=== PATIENT | female | born 1985 | race Hispanic/Latino ===

== ENCOUNTER 2018-09-22 16:36 | Emergency (ER) | payer BC ==
--- OUTSIDE RECORDS SUMMARY | 2018-09-22 16:38 | XMS REPORT ---
:1985 [facility] Address [address] [place] [address] Dr. Leigh [address] [place] [id number] Care Team Providers Name Role Phone Unavailable Unavailable Unavailable Problems This patient has no known problems. Allergies, Adverse Reactions, Alerts This patient has no known allergies or adverse reactions. Medications This patient has no known medications. Results Test Description Test Time Test Comments Text Results Atomic Results Result Comments [place], ERCP 2017-02-03 15:52:00 Reason for FINAL REPORT PATIENT ID: exam:->abnormal LFTs [id number] TECHNIQUE: Fluoroscopic images from endoscopic retrograde cholangiopancreatography were submitted for interpretation. INDICATION: 31-year-old woman with abnormal LFTs. COMPARISON: None. FINDINGS:Images show the endoscope in the expected region of the proximal duodenum with interrogation of the biliary system. Fluoroscopy time: 2.3 minutesNumber of images: 3 IMPRESSION:Fluoroscopic images from endoscopic retrograde cholangiopancreatography as detailed above, not obtained by the undersigned. Please refer to endoscopy note for more details of the procedure and findings. Signed: Camilla Cruz MDReport Verified Date/Time: 02/03/2017 15:52:56 Reading Location: [address] Radiology Reading Room
--- OUTSIDE RECORDS SUMMARY | 2018-09-22 16:38 | XMS REPORT | Clinical Summary ---
:[address] [facility] Address [address] [place] [address] Care Team Providers Name Role Phone Sylwia Constantino MD Primary Care Provider Allergies No Known Allergies Medications Medication Sig Dispensed Refills Start Date End Date Status pantoprazole (PROTONIX) Take 40 mg by 0 Active 40 MG tablet mouth daily. ibuprofen Take 800 mg by 0 Active (ADVIL,MOTRIN) 800 MG mouth every 6 tablet (six) hours as needed for Pain. aluminum-magnesium Take 30 mLs by 0 Active hydroxide-simethicone mouth as needed . (MAALOX PLUS) suspension 200-200-20 mg/5 mL ranitidine (ZANTAC) 75 Take 75 mg by 0 Active MG tablet mouth as needed for Heartburn. Active Problems Not on file Social History Tobacco Use Types Packs/Day Years Used Date Former Smoker Smokeless Tobacco: Never Used Alcohol Use Drinks/Week oz/Week Comments Yes occasionally Sex Assigned at Date Recorded Not on file Job Start Date Occupation Industry Not on file Not on file Not on file Travel History Travel Start Travel End No recent travel history available. Last Filed Vital Signs Not on file Plan of Treatment Not on file Results Not on fileafter 09/21/2017 Insurance Payer Benefit Plan / Subscriber ID Type Phone Address Group BLUE CROSS/BLUE BCBS HMO xxxxxxxxxxxx HMO/POS [phone] [address] [place] [address] [place] y (Home) [place] [address]
[2018-09-22] MEDS ORDERED: ONDANSETRON 4 MG/2 ML VIAL ONE (17:13)
[2018-09-22] MEDS ORDERED: NA CHLORIDE 0.9% 1,000 ML ONE ×3 (17:13→21:48)
[2018-09-22 17:20] LABS: Absolute Lymphocytes (CBC) 1.1 K/uL (0.7-4.9); Absolute Monocytes 0.8 K/uL (0.1-1.3); Absolute Neutrophil 15.1 K/uL (1.8-8.0); Basophils % 0.2 % (0-1.3); Eosinophils % 0.3 % (0-4.4); Hematocrit 40.1 % (36.0-45.0); Lymphocytes % 6.3 % (15.3-44.8); MPV 6.6 fL (7.6-11.3); Monocytes % 4.5 % (3.3-12.3); RBC Red Blood Cell Count 4.53 M/uL (3.86-4.86)
[2018-09-22 17:34] LABS: Urine Bacteria <20 /HPF (<20); Urine Culture Reflex Order NOT NEEDED; Urine RBC <5 /HPF (NONE SEEN)
[2018-09-22 17:34] LABS: Urine Blood TRACE (NEG); Urine Glucose NEGATIVE (NEG); Urine Protein NEGATIVE (NEG); Urine pH 5.5 (5.0-7.0)
[2018-09-22 17:37] LABS: ALT/SGPT 20 U/L (12-78); AST/SGOT 16 U/L (15-37); Albumin 3.6 g/dL (3.4-5.0); Alkaline Phosphatase 97 U/L (45-117); BUN Blood Urea Nitrogen 13 mg/dL (7-18); Bicarbonate 24 mmol/L (21-32); Bilirubin Direct < 0.1 mg/dL (0-0.2); Bilirubin Total 0.4 mg/dL (0.2-1.0); Glucose Level 129 mg/dL (74-106); Lipase 113 U/L (73-393); Potassium 3.8 mmol/L (3.5-5.1); Protein, Total 8.5 g/dL (6.4-8.2); Sodium Level 135 mmol/L (136-145)
[2018-09-22 17:49] LABS: Blood Morphology Comment NOT SEEN (NOT SEEN); Platelet Estimate ADEQ; Urine White Blood Cell Casts OK
--- NOTE | 2018-09-22 18:16 | RAD REPORT ---
EXAM DESCRIPTION: CT - Abdomen Pelvis W Contrast - 09/22/2018 6:01 pm CLINICAL HISTORY: Abdominal pain . COMPARISON: 2016 TECHNIQUE: Computed axial tomography of the abdomen pelvis was obtained. 100 cc Isovue-300 was admin istered intravenously. Oral contrast was not requested which limits evaluation of bowel. All CT scans are performed using dose optimization technique as appropriate and may include automated exposure control or mA/KV adjustment according to patient size. FINDINGS: The liver, spleen, pancreas, adrenal and kidneys appear unremarkable. There is no evidence of diverticulitis. A normal appendix Cholecystectomy . Tiny umbilical hernia Spondylolysis L5 IMPRESSION: No acute abnormality is displayed.
[2018-09-22] MEDS ORDERED: IBUPROFEN 400 MG TAB ONE (19:03)
[2018-09-22] MEDS ORDERED: IBUPROFEN 200 MG TAB PO ONE (19:03)
--- NOTE | 2018-09-22 19:08 | RAD REPORT ---
EXAM DESCRIPTION: Dulce Thayer (2 Views)09/22/2018 6:38 pm CLINICAL HISTORY: Cough COMPARISON: None FINDINGS: The lungs appear clear of acute infiltrate. The heart is normal size IMPRESSION: No acute abnormalities displayed
[2018-09-22] MEDS ORDERED: ACETAMINOPHEN 325 MG TABLET ONE (19:18)
--- NOTE | 2018-09-22 21:06 | EDPHYS ---
Physician Documentation [facility] Name: Inga Estrada Age: 33 yrs Sex: Female : 1985 Arrival Date: 09/22/2018 Time: 16:38 Bed 30 Private MD: Andi Weinstein ED Physician Darrius Joaquin HPI: 09/22 16:56 This 33 yrs old Female presents to ER via Ambulatory with complaints of jmm Abdominal Pain, Groin Pain, Fever. 16:56 The patient presents with abdominal pain. Onset: The symptoms/episode began/occurred jmm today. The symptoms do not radiate. Associated signs and symptoms: Pertinent positives: dysuria, fever, nausea, Pertinent negatives: diarrhea. This is a 33 year old female with no chronic medical conditions that presents to the ED with complaints of left lower abdominal pain, increased urinary frequency beginning earlier today. patient also complains of cough beginning 5 days ago. States her children have similar symptoms. . 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 - Social history:: Smoking status: Patient/guardian denies using tobacco. - Ebola Screening: : Patient negative for fever greater than or equal to 101.5 degrees Fahrenheit, and additional compatible Ebola Virus Disease symptoms Patient denies exposure to infectious person Patient denies travel to an Ebola-affected area in the 21 days before illness onset No symptoms or risks identified at this time. ROS: 16:56 Cardiovascular: Negative for chest pain, palpitations, and edema. jmm 16:56 Constitutional: Positive for body aches, chills, fever. 16:56 ENT: Positive for sore throat. 16:56 Respiratory: Positive for cough. 16:56 Abdomen/GI: Positive for abdominal pain. 16:56 : Positive for urinary symptoms. 16:56 All other systems are negative. Exam: 16:56 Constitutional: This is a well developed, well nourished patient who is awake, alert, jmm and in no acute distress. Head/Face: atraumatic. Eyes: EOMI, no conjunctival erythema appreciated 16:56 Chest/axilla: Normal chest wall appearance and motion. 16:56 ENT: Posterior pharynx: erythema, that is mild. 16:56 Cardiovascular: Rate: tachycardic, Rhythm: regular. 16:56 Respiratory: the patient does not display signs of respiratory distress, Respirations: normal, Breath sounds: are clear throughout. 16:56 Abdomen/GI: Inspection: obese Palpation: soft, mild abdominal tenderness, in the suprapubic area and left lower quadrant. 16:56 Back: CVA tenderness, is absent, is noted bilaterally. 16:56 Musculoskeletal/extremity: ROM: intact in all extremities. 16:56 Skin: Appearance: Color: normal in color, cellulitis, is not appreciated. 16:56 Neuro: Orientation: is normal, Mentation: is normal, Memory: is normal. 16:56 Psych: Behavior/mood is pleasant, cooperative. Vital Signs: 16:54 BP 128 / 67; Pulse 132; Resp 19; Pulse Ox 100% ; rv 16:54 BP 128 / 67; Pulse 132; Resp 17; Temp 98.7; Pulse Ox 97% on R/A; Weight 154.67 kg; sg Height 5 ft. 5 in. (165.10 cm); Pain 6/10; 17:43 BP 115 / 73; Pulse 122; Resp 17 S; Temp 99.9(O); Pulse Ox 100% on R/A; ca1 18:25 BP 110 / 52; Pulse 119; Resp 17; Pulse Ox 100% on R/A; ca1 19:00 BP 137 / 53; Pulse 125; Resp 19 S; Temp 103.1(O); Pulse Ox 99% on R/A; ca1 19:56 BP 124 / 51; Pulse 106; Resp 19; Pulse Ox 97% ; rv 20:06 BP 107 / 58; Pulse 130; Resp 18 S; Temp 98.8(O); Pulse Ox 98% on R/A; ca1 20:42 BP 118 / 49; Pulse 116; Resp 19 S; Temp 98.9(O); Pulse Ox 97% on R/A; ca1 21:07 Pulse 103; ca1 21:21 BP 118 / 49; Pulse 105; Resp 18 S; Temp 98.5; Pulse Ox 97% on R/A; ca1 22:09 BP 109 / 57; Pulse 104; Resp 19 S; Temp 99.1(O); Pulse Ox 100% on R/A; ca1 16:54 Body Mass Index 56.74 (154.67 kg, 165.10 cm) sg 21:07 as per VALERI Quezada. ca1 MDM: 16:56 Patient medically screened. [facility] 21:02 Data reviewed: vital signs, nurses notes. Counseling: I had a detailed discussion with isamar the patient and/or guardian regarding: the historical points, exam findings, and any diagnostic results supporting the discharge/admit diagnosis, lab results, radiology results, the need for outpatient follow up, to return to the emergency department if symptoms worsen or persist or if there are any questions or concerns that arise at home. ED course: Patient is alert and non toxic in appearance in the ED. VS appear stable on discharge. Patient will be prescribed abx due to urinary complaints. Patient states her children have similar symptoms. Fever appears to be due to a viral syndrome. Patient is otherwise given strict return precautions. patient understood and agrees with the plan of care.. 09/22 16:57 Order name: Basic Metabolic Panel; Complete Time: 17:40 [facility] 09/22 16:57 Order name: CBC with Diff; Complete Time: 17:53 [facility] 09/22 16:57 Order name: Creatinine for Radiology; Complete Time: 17:41 [facility] 09/22 16:57 Order name: Hepatic Function; Complete Time: 17:40 [facility] 09/22 16:57 Order name: Lipase; Complete Time: 17:40 [facility] 09/22 17:02 Order name: Flu [facility] 09/22 17:03 Order name: Influenza Screen (A ; Complete Time: 17:40 [facility] 09/22 17:03 Order name: Urine Dipstick--Ancillary (enter results); Complete Time: 17:40 ca 09/22 17:03 Order name: Urine --Ancillary (enter results); Complete Time: 17:40 ca 09/22 17:05 Order name: Urine Microscopic Only ca1 09/22 17:05 Order name: Urine Microscopic Only; Complete Time: 17:40 [facility] 09/22 17:25 Order name: CBC Smear Scan; Complete Time: 17:53 [facility] 09/22 18:35 Order name: Strep; Complete Time: 19:23 [facility] 09/22 18:35 Order name: Procalcitonin; Complete Time: 19:52 [facility] 09/22 16:57 Order name: IV Saline Lock; Complete Time: 17:12 [facility] 09/22 16:57 Order name: Labs collected and sent; Complete Time: 17:12 [facility] 09/22 16:57 Order name: Urine Dipstick-Ancillary (obtain specimen); Complete Time: 16:59 [facility] 09/22 16:57 Order name: CT Abd/Pelvis - W/Contrast; Complete Time: 18:21 [facility] 09/22 18:21 Order name: Chest Pa And Lat (2 Views) XRAY; Complete Time: 19:09 [facility] 09/22 19:09 Order name: [place] Screen Profile; Complete Time: 19:52 [facility] 09/22 19:10 Order name: Throat Culture EDMS Administered Medications: 17:12 Drug: NS 0.9% 1000 ml Route: IV; Rate: 1 bolus; Site: right antecubital; rv 18:00 Follow up: IV Status: Completed infusion ca1 18:45 Drug: Motrin 600 mg Route: PO; ca1 20:08 Follow up: Response: No adverse reaction; Temperature is decreased ca1 18:45 Drug: NS 0.9% 1000 ml Route: IV; Rate: 1 bolus; Site: right antecubital; ca1 19:30 Follow up: IV Status: Completed infusion ca1 20:08 Follow up: IV Status: Completed infusion ca1 19:03 Drug: Tylenol 650 mg Route: PO; ca1 20:08 Follow up: Response: No adverse reaction; Temperature is decreased ca1 20:42 Drug: NS 0.9% 1000 ml Route: IV; Rate: 1 bolus; Site: right antecubital; ca1 22:07 Follow up: IV Status: Completed infusion ca1 21:25 Not Given (Patient Refused): Zofran 4 mg IVP once; over 2 minutes ca1 Disposition: 09/22/18 21:05 Discharged to Home. Impression: Other viral infections of unspecified site, Unspecified abdominal pain, Dysuria. - Condition is Stable. - Discharge Instructions: Abdominal Pain, Adult, Dysuria, Viral Respiratory Infection. - Prescriptions for Cephalexin 500 mg Oral Capsule - take 1 capsule by ORAL route every 12 hours for 10 days; 20 capsule. - Medication Reconciliation Form, Thank You Letter, Antibiotic Education, Prescription Opioid Use form. - Follow up: Andi Weinstein MD; When: 2 - 3 days; Reason: Recheck today's complaints, Continuance of care, Re-evaluation by your physician. Addendum: 09/25/2018 21:18 Co-signature as Attending Physician, Darrius Joaquin MD Available for consultation at p s1 all times. . Signatures: Dispatcher [employer] EDLanden Saleem, RN RN sg Renny Bui PA PA jmm Singer, Phillip, MD MD ps1 Alex Cooper RN RN rv AcMary moran RN RN ca1 Corrections: (The following items were deleted from the chart) 09/22 22:11 21:05 09/22/2018 21:05 Discharged to Home. Impression: Other viral infections of ca1 unspecified site; Unspecified abdominal pain; Dysuria. Condition is Stable. Forms are Medication Reconciliation Form, Thank You Letter, Antibiotic Education, Prescription Opioid Use. Follow up: Andi Weinstein; When: 2 - 3 days; Reason: Recheck today's complaints, Continuance of care, Re-evaluation by your physician. isamar
--- NOTE | 2018-09-22 21:06 | ER ---
Nurse's Notes [facility] Name: Inga Estrada Age: 33 yrs Sex: Female : 1985 Arrival Date: 09/22/2018 Time: 16:38 Bed 30 Private MD: Andi Weinstein Diagnosis: Other viral infections of unspecified site;Unspecified abdominal pain;Dysuria Presentation: 09/22 16:53 Presenting complaint: Patient states: I have had left side lower back and left sided sg flank pain that worsened this morning around 0900 with nausea fever and chills, reports the pain wraps around the left side of her body. Transition of care: patient was not received from another setting of care. Onset of symptoms was September 22, 2018. Risk Assessment: Do you want to hurt yourself or someone else? Patient reports no desire to harm self or others. Initial Sepsis Screen: Does the patient meet any 2 criteria? HR > 90 bpm. Does the patient have a suspected source of infection? Yes: Dysuria/Frequency/Urgency/UTI. Care prior to arrival: None. 16:53 Method Of Arrival: Ambulatory 16:53 Acuity: IGOR 3 sg MD PSYCHIATRY: 16:54 LMP N/A - Recent sg Historical: - Allergies: 16:55 No Known Allergies; sg - PSHx: 16:55 Cholecystectomy; sg - Immunization history:: Adult Immunizations up to date. - Social history:: Smoking status: Patient/guardian denies using tobacco. - Ebola Screening: : Patient negative for fever greater than or equal to 101.5 degrees Fahrenheit, and additional compatible Ebola Virus Disease symptoms Patient denies exposure to infectious person Patient denies travel to an Ebola-affected area in the 21 days before illness onset No symptoms or risks identified at this time. Screenin:54 Abuse screen: Denies threats or abuse. Denies injuries from another. Nutritional ca1 screening: No deficits noted. Tuberculosis screening: No symptoms or risk factors identified. Fall Risk None identified. Assessment: 16:54 General: Appears in no apparent distress. comfortable, Behavior is calm, cooperative, ca1 appropriate for age. Pain: Complains of pain in left lower quadrant Pain radiates to suprapubic area and posterior aspect of left lateral abdomen Pain currently is 6 out of 10 on a pain scale. at worst was 8 out of 10 on a pain scale. Quality of pain is described as pressure, Pain began at 0900 today. Neuro: Level of Consciousness is awake, alert, obeys commands. Cardiovascular: Heart tones S1 S2 present Capillary refill < 3 seconds Patient's skin is warm and dry. Respiratory: Airway is patent Respiratory effort is even, unlabored, Respiratory pattern is regular, symmetrical. GI: Abdomen is round non-distended, Bowel sounds present X 4 quads. Abd is soft X 4 quads Abdomen is tender to palpation in right lower quadrant and left lower quadrant Reports nausea. : No deficits noted. No signs and/or symptoms were reported regarding the genitourinary system. EENT: No deficits noted. No signs and/or symptoms were reported regarding the EENT system. Derm: Skin is intact, is healthy with good turgor, Skin is pink, warm \T\ dry. Derm: Musculoskeletal: Circulation, motion, and sensation intact. Capillary refill < 3 seconds. 17:13 Reassessment: Pt refused Zofran as of this time. States, she is nauseated as of this ca1 time. 18:25 Reassessment: Patient appears in no apparent distress at this time. Patient and/or ca1 family updated on plan of care and expected duration. Pain level reassessed. Patient is alert, oriented x 3, equal unlabored respirations, skin warm/dry/pink. 20:07 Reassessment: Patient appears in no apparent distress at this time. Patient is alert, ca1 oriented x 3, equal unlabored respirations, skin warm/dry/pink. 20:42 Reassessment: Patient appears in no apparent distress at this time. Patient and/or ca1 family updated on plan of care and expected duration. Pain level reassessed. Patient is alert, oriented x 3, equal unlabored respirations, skin warm/dry/pink. 21:22 Reassessment: Patient appears in no apparent distress at this time. Patient is alert, ca1 oriented x 3, equal unlabored respirations, skin warm/dry/pink. Patient states feeling better. 21:24 Reassessment: Pt requested to finish IVF before discharge. ca1 22:09 Reassessment: Patient appears in no apparent distress at this time. Patient is alert, ca1 oriented x 3, equal unlabored respirations, skin warm/dry/pink. Instructions given, especially with intervals in taking Motrin and Tylenol. Verbalized understanding on instructions. Vital Signs: 16:54 BP 128 / 67; Pulse 132; Resp 19; Pulse Ox 100% ; rv 16:54 BP 128 / 67; Pulse 132; Resp 17; Temp 98.7; Pulse Ox 97% on R/A; Weight 154.67 kg; sg Height 5 ft. 5 in. (165.10 cm); Pain 6/10; 17:43 BP 115 / 73; Pulse 122; Resp 17 S; Temp 99.9(O); Pulse Ox 100% on R/A; ca1 18:25 BP 110 / 52; Pulse 119; Resp 17; Pulse Ox 100% on R/A; ca1 19:00 BP 137 / 53; Pulse 125; Resp 19 S; Temp 103.1(O); Pulse Ox 99% on R/A; ca1 19:56 BP 124 / 51; Pulse 106; Resp 19; Pulse Ox 97% ; rv 20:06 BP 107 / 58; Pulse 130; Resp 18 S; Temp 98.8(O); Pulse Ox 98% on R/A; ca1 20:42 BP 118 / 49; Pulse 116; Resp 19 S; Temp 98.9(O); Pulse Ox 97% on R/A; ca1 21:07 Pulse 103; ca1 21:21 BP 118 / 49; Pulse 105; Resp 18 S; Temp 98.5; Pulse Ox 97% on R/A; ca1 22:09 BP 109 / 57; Pulse 104; Resp 19 S; Temp 99.1(O); Pulse Ox 100% on R/A; ca1 16:54 Body Mass Index 56.74 (154.67 kg, 165.10 cm) sg 21:07 as per VALERI Quezada. ca1 ED Course: 16:38 Patient arrived in ED. as 16:39 Andi Weinstein MD is Private Physician. as 16:44 Mary Villafana, GER is Primary Nurse. ca1 16:45 Renny Bui PA is [facility]. [facility] 16:45 Darrius Joaquin MD is Attending Physician. [facility] 16:54 Triage completed. sg 16:55 Arm band placed on. sg 16:57 Patient has correct armband on for positive identification. Placed in gown. Bed in low ca1 position. Call light in reach. Side rails up X 1. Pulse ox on. NIBP on. Warm blanket given. 17:05 Inserted saline lock: 22 gauge in right antecubital area, using aseptic technique. rv Blood collected. 17:[address] mw3 18:01 CT completed. Patient tolerated procedure well. Patient moved back from CT. mw3 18:01 CT Abd/Pelvis - W/Contrast In Process Unspecified. EDMS 18:37 Chest Pa And Lat (2 Views) XRAY In Process Unspecified. EDMS 21:04 Andi Weinstein MD is Referral Physician. m 22:11 No provider procedures requiring assistance completed. IV discontinued, intact, ca1 bleeding controlled, No redness/swelling at site. Pressure dressing applied. Administered Medications: 17:12 Drug: NS 0.9% 1000 ml Route: IV; Rate: 1 bolus; Site: right antecubital; rv 18:00 Follow up: IV Status: Completed infusion ca1 18:45 Drug: Motrin 600 mg Route: PO; ca1 20:08 Follow up: Response: No adverse reaction; Temperature is decreased ca1 18:45 Drug: NS 0.9% 1000 ml Route: IV; Rate: 1 bolus; Site: right antecubital; ca1 19:30 Follow up: IV Status: Completed infusion ca1 20:08 Follow up: IV Status: Completed infusion ca1 19:03 Drug: Tylenol 650 mg Route: PO; ca1 20:08 Follow up: Response: No adverse reaction; Temperature is decreased ca1 20:42 Drug: NS 0.9% 1000 ml Route: IV; Rate: 1 bolus; Site: right antecubital; ca1 22:07 Follow up: IV Status: Completed infusion ca1 21:25 Not Given (Patient Refused): Zofran 4 mg IVP once; over 2 minutes ca1 Outcome: 21:05 Discharge ordered by . [facility] 22:11 Discharged to home ambulatory, with significant other. ca1 22:11 Condition: stable 22:11 Discharge instructions given to patient, Instructed on discharge instructions, follow up and referral plans. medication usage, Demonstrated understanding of instructions, follow-up care, medications, Prescriptions given X 1. 22:11 Patient left the ED. ca1 Signatures: Dispatcher [employer] EDMS Landen Tapia, GER RN Renny Bui PA PA jmm Martinez, Amelia as Willis, Michelle mw3 Alex Cooper RN RN rv Mary Villafana RN RN ca1 Corrections: (The following items were deleted from the chart) 16:58 16:54 Patient has correct armband on for positive identification. Placed in gown. Bed ca1 in low position. Call light in reach. Side rails up X 1. ca1 : 16:54 Pulse ox on. NIBP on. ca1 ca1 16:58 16:54 Warm blanket given. ca1 ca1 20:43 19:00 BP 137 / 53; Pulse 125bpm; Resp 19bpm; Spontaneous; Pulse Ox 99% RA; Temp 103.1F; ca1 ca1 20:43 20:06 BP 107 / 58; Pulse 130bpm; Resp 18bpm; Spontaneous; Pulse Ox 98% RA; Temp 98.8F; ca1 ca1 20:56 20:42 Pulse 116bpm; Resp 19bpm; Spontaneous; Pulse Ox 97% RA; Temp 98.9F Oral; ca1 ca1
[2018-09-22 23:04] VITALS: BP 109/57; TEMP 99.1; O2SAT 100
== END 2018-09-22 22:11 | disposition home or self-care (01) ==
LOC: ER 16:36
DX: B34.8 Other viral infections of unspecified site (principal); R10.9 Unspecified abdominal pain; R30.0 Dysuria
CPT/HCPCS: 36415; 71046; 74177; 80048; 80076; 81003; 81015; 81025; 83690; 84145; 85025; 86308; 87070; 87081; 87804; 96360; 96361; 99284; J2405; J7030; Q9967